=== PATIENT | male | born 1980 | race Caucasian/White ===

== ENCOUNTER 2020-02-16 16:27 | Emergency (ER) | payer BC ==
[~2020-02-16] VITALS: Ht 180.3 cm; Wt 74.8 kg
[2020-02-16 16:30] VITALS: Ht 180.3 cm; Wt 74.8 kg
[2020-02-16 17:30] VITALS: BP 135/81
== END 2020-02-16 17:33 | disposition home or self-care (01) ==
LOC: ED 16:27
DX: R07.89 Other chest pain (principal); Z88.0 Allergy status to penicillin
CPT/HCPCS: Q0092